=== PATIENT | male | born 1950 | race Caucasian/White ===

== ENCOUNTER 2022-08-08 20:08 | Emergency (ER) | payer MEDICARE ==
[~2022-08-08] VITALS: Ht 185.4 cm; Wt 103.5 kg
[2022-08-08] MEDS ORDERED: ZOSYN 3.375GM +NS 50ML IV SCH (21:00)
[2022-08-08 21:07] LABS: BASOPHILS % (AUTO) 0.5 % (0.0-5.0); EOSINOPHILS % (AUTO) 3.1 % (0.0-8.0); HEMATOCRIT 41.1 % (42-54); LYMPHOCYTES % (AUTO) 29.8 % (21.0-51.0); MEAN CORPUSCULAR HEMOGLOBIN 31.3 pg (27.0-33.0); MEAN CORPUSCULAR VOLUME 89.3 fL (79-99); MONOCYTES % (AUTO) 10.5 % (3.0-13.0); NEUTROPHILS % (AUTO) 55.7 % (40.0-77.0); PLATELET COUNT (AUTO) 188 K/uL (130-400); RED CELL DISTRIBUTION WIDTH 12.6 % (11.0-15.5); WHITE BLOOD COUNT (AUTO) 8.5 K/uL (4.8-10.8)
[2022-08-08] MEDS ORDERED: SULF1TAB42 PO (21:09)
[2022-08-08 21:23] LABS: CREATININE 0.9 mg/dL (0.5-1.5); POTASSIUM 3.3 mmol/L (3.5-5.1)
[2022-08-08 21:28] LABS: ALBUMIN 3.8 g/dL (3.5-5.0); TOTAL PROTEIN, SERUM 7.3 g/dL (6.0-8.3)
[2022-08-08 21:37] VITALS: BP 134/90
[2022-08-08] MEDS ORDERED: POTASSIUM CHLORIDE 10% ELIXIR 20 MEQ/15 ML UDCUP PO ONE (22:00)
== END 2022-08-08 22:03 | disposition home or self-care (01) ==
LOC: EDH 20:08
DX: L03.032 Cellulitis of left toe (principal); L84 Corns and callosities; E87.6 Hypokalemia; E11.621 Type 2 diabetes mellitus with foot ulcer; L97.529 Non-pressure chronic ulcer of other part of left foot with unspecified severity; M10.9 Gout, unspecified; I10 Essential (primary) hypertension; E78.00 Pure hypercholesterolemia, unspecified; Z95.1 Presence of aortocoronary bypass graft; Z98.890 Other specified postprocedural states
CPT/HCPCS: 11055; 99284; 80053; 85025; 36415; 96365; J2543

== ENCOUNTER 2023-04-08 06:13 | Day surgery (SDC) | payer MEDICARE ==
[2023-04-03 15:54] LABS: INR 0.93 (0.85-1.15); PROTHROMBIN TIME 10.5 SEC (9.6-11.6)
[2023-04-03 15:56] LABS: PARTIAL THROMBOPLASTIN TIME 26.1 SEC (26.3-35.5)
[2023-04-03 15:57] LABS: ALBUMIN 3.9 g/dL (3.5-5.0); BILIRUBIN,TOTAL 2.2 mg/dL (0.2-1.0); POTASSIUM 4.4 mmol/L (3.5-5.1); TOTAL PROTEIN, SERUM 7.6 g/dL (6.0-8.3)
[2023-04-03 16:07] VITALS: BP 157/77; PULSE 71; RESP 16
[2023-04-03 16:12] LABS: BASOPHILS # (AUTO) 0.06 K/uL (0.00-0.20); BASOPHILS % (AUTO) 0.6 % (0.0-5.0); EOSINOPHILS # (AUTO) 0.27 K/uL (0.00-0.70); EOSINOPHILS % (AUTO) 2.6 % (0.0-8.0); IMMATURE GRANULOCYTE ABSOLUTE 0.02 K/uL (0-1); LYMPHOCYTES # (AUTO) 2.9 K/uL (1.0-4.8); LYMPHOCYTES % (AUTO) 28.1 % (21.0-51.0); MEAN CORPUSCULAR HEMOGLOBIN 31.7 pg (27.0-33.0); MEAN CORPUSCULAR HGB CONC 33.7 g/dL (32.0-36.0); MEAN CORPUSCULAR VOLUME 94.1 fL (79-99); MONOCYTES # (AUTO) 0.8 K/uL (0.1-1.0); MONOCYTES % (AUTO) 7.8 % (3.0-13.0); NEUTROPHILS # (AUTO) 6.3 K/uL (1.8-7.7); NEUTROPHILS % (AUTO) 60.7 % (40.0-77.0); PLATELET COUNT (AUTO) 220 K/uL (130-400); RED BLOOD CELL COUNT(AUTO) 4.57 MIL/uL (4.50-6.20); WHITE BLOOD COUNT (AUTO) 10.5 K/uL (4.8-10.8)
[~2023-04-08] VITALS: Ht 185.4 cm; Wt 1014.2 kg
[2023-04-08] VITALS (20 sets, daily range): BP systolic 143–218; BP diastolic 64–96; PULSE 63–83; RESP 16–22
[~2023-04-08 06:13] MED LIST: AEC81 PO; ALLO300T2 PO; ATOR40TA71 PO; INSU100V37 SQ; LISI1TAB51 PO; METF-446 PO; METO50TA18 PO; NOVOLOG SQ; OMEG-148 PO
[2023-04-08] MEDS ORDERED: MEROPENEM 1 GM VIAL ONE (06:51)
[2023-04-08] MEDS ORDERED: 0.9%NACL 1000ML 1,000 ML IV ONE (06:52)
[2023-04-08] MEDS ORDERED: BUPIVACAINE/PF 0.5% 30ML VIAL ONE (07:18)
[2023-04-08] MEDS ORDERED: FAMOTIDINE 20MG VIAL IV ONE (07:22)
[2023-04-08] MEDS ORDERED: LIDOCAINE PF 100MG/5ML (2%) SYRINGE 5ML ONE (07:27)
[2023-04-08] MEDS ORDERED: ROCURONIUM 10MG/1ML SYR 10 MG/ML ML ONE (07:28)
[2023-04-08] MEDS ORDERED: FENTANYL CITRATE PF 50 MCG/1 ML 2ML VIAL ONE ×3 (07:28→10:21)
[2023-04-08] MEDS ORDERED: GLYCOPYRROLATE 1 MG/5 ML SYRINGE ONE (07:28)
[2023-04-08] MEDS ORDERED: PROPOFOL 10 MG/ML 20ML VIAL IV ONE (07:28)
[2023-04-08] MEDS ORDERED: LIDOCAINE HCL 1% 20 ML VIAL MISC ONE (08:01)
[2023-04-08] MEDS ORDERED: BUPIVACAINE/PF 0.5% 30ML VIAL INJ ONE (08:02)
[2023-04-08] MEDS ORDERED: CEFAZOLIN SODIUM 2 GM VIAL IVPB ONE (08:08)
[2023-04-08] MEDS ORDERED: ONDANSETRON 4MG INJ ONE ×2 (08:08→10:56)
[2023-04-08] MEDS ORDERED: NEOSTIGMINE 5MG/5ML SYR IV ONE (10:20)
[2023-04-08] MEDS ORDERED: MEPERIDINE-PF 25 MG/ML SYG ONE ×2 (10:57→11:02)
[2023-04-08] MEDS ORDERED: HYDRALAZINE 20MG/ML VIAL ONE (11:02)
[2023-04-08] MEDS ORDERED: ACETAMINOPHEN WITH CODEINE 1 TAB TAB ONE (12:42)
== END 2023-04-08 13:40 | disposition home or self-care (01) ==
LOC: DAH 06:13
PROVIDERS: ATTEND Surgery
DX: D12.1 Benign neoplasm of appendix (principal); Z20.822 Contact with and (suspected) exposure to COVID-19; R19.4 Change in bowel habit; R19.5 Other fecal abnormalities; I10 Essential (primary) hypertension; E11.9 Type 2 diabetes mellitus without complications; I25.10 Atherosclerotic heart disease of native coronary artery without angina pectoris; K21.9 Gastro-esophageal reflux disease without esophagitis; Z79.899 Other long term (current) drug therapy; Z79.01 Long term (current) use of anticoagulants; Z79.82 Long term (current) use of aspirin; Z87.891 Personal history of nicotine dependence; Z98.890 Other specified postprocedural states
CPT/HCPCS: 80053; 85025; 85610; 85730; 86850 ×2; 86900 ×2; 86901 ×2; 87426; 36415 ×2; 44970; 82948 ×2; A6260; A4663; J7030 ×2; J7120; A4344; A4215 ×2; J3490 ×4; J3010 ×3; J2710; J2001; J0360; J2704; J2405 ×2; J2175 ×2; J2185; J0690; C1769; A4223; A4222; A4221; A4600; G0168

== ENCOUNTER 2023-11-04 06:19 | Day surgery (SDC) | payer MEDICARE ==
[2023-10-30 15:50] VITALS: BP 155/77; PULSE 68; RESP 15
[2023-10-30 15:50] LABS: BASOPHILS # (AUTO) 0.06 K/uL (0.00-0.20); BASOPHILS % (AUTO) 0.5 % (0.0-5.0); EOSINOPHILS # (AUTO) 0.42 K/uL (0.00-0.70); EOSINOPHILS % (AUTO) 3.8 % (0.0-8.0); HEMATOCRIT 43.2 % (42-54); IMMATURE GRANULOCYTE ABSOLUTE 0.04 K/uL (0-1); LYMPHOCYTES # (AUTO) 3.4 K/uL (1.0-4.8); LYMPHOCYTES % (AUTO) 30.7 % (21.0-51.0); MEAN CORPUSCULAR HEMOGLOBIN 31.8 pg (27.0-33.0); MEAN CORPUSCULAR HGB CONC 33.3 g/dL (32.0-36.0); MEAN CORPUSCULAR VOLUME 95.4 fL (79-99); MONOCYTES # (AUTO) 0.9 K/uL (0.1-1.0); MONOCYTES % (AUTO) 7.6 % (3.0-13.0); NEUTROPHILS # (AUTO) 6.4 K/uL (1.8-7.7); PLATELET COUNT (AUTO) 246 K/uL (130-400); RED BLOOD CELL COUNT(AUTO) 4.53 MIL/uL (4.50-6.20); RED CELL DISTRIBUTION WIDTH 13.7 % (11.0-15.5); WHITE BLOOD COUNT (AUTO) 11.2 K/uL (4.8-10.8)
[2023-10-30 16:15] LABS: POTASSIUM 4.4 mmol/L (3.5-5.1)
[~2023-11-04] VITALS: Ht 185.4 cm; Wt 99.6 kg
[2023-11-04] VITALS (17 sets, daily range): BP systolic 131–198; BP diastolic 49–87; PULSE 54–72; RESP 12–19
[~2023-11-04 06:19] MED LIST changes: -AEC81 PO; +CEFAZOLIN SODIUM 1 GM VIAL IVPB PRN; +mvi PO
[2023-11-04] MEDS: 0.9%NACL 1000ML 1,000 ML IV ONE (07:11)
[2023-11-04] MEDS: CEFAZOLIN SODIUM 2 GM VIAL ONE (07:12)
[2023-11-04] MEDS ORDERED: BUPIVACAINE/PF 0.25% 30ML VIAL IJ ONE (07:29)
[2023-11-04] MEDS ORDERED: IOHEXOL-350 50ML VIAL IV ONE (07:48)
[2023-11-04] MEDS ORDERED: LIDOCAINE PF 100MG/5ML (2%) SYRINGE 5ML ONE (10:06)
[2023-11-04] MEDS ORDERED: PROPOFOL 10 MG/ML 20ML VIAL IV ONE (10:06)
[2023-11-04] MEDS ORDERED: GLYCOPYRROLATE 0.2 MG/ML 5 ML VIAL ONE (10:06)
[2023-11-04] MEDS ORDERED: ROCURONIUM BROMIDE 10MG/1ML 5ML VL ONE (10:07)
[2023-11-04] MEDS ORDERED: FENTANYL CITRATE PF 50 MCG/1 ML 2ML VIAL ONE ×2 (10:07→10:46)
[2023-11-04] MEDS: CEFAZOLIN SODIUM 2 GM VIAL IVPB ONE ×2 (10:20)
[2023-11-04] MEDS: BUPIVACAINE/PF 0.25% 30ML VIAL IJ ONE ×2 (10:40)
[2023-11-04] MEDS ORDERED: ONDANSETRON 4MG INJ ONE (10:41)
[2023-11-04] MEDS ORDERED: NEOSTIGMINE METHYLSULFATE 1MG/ML IV ONE (11:30)
[2023-11-04] MEDS: MEPERIDINE-PF 25 MG/ML SYG ONE (12:06)
[2023-11-04] MEDS: HYDRALAZINE 20MG/ML VIAL ONE (12:21)
== END 2023-11-04 13:40 | disposition home or self-care (01) ==
LOC: DAH 06:19
PROVIDERS: ATTEND Surgery
DX: K80.10 Calculus of gallbladder with chronic cholecystitis without obstruction (principal); I10 Essential (primary) hypertension; E11.9 Type 2 diabetes mellitus without complications; I25.10 Atherosclerotic heart disease of native coronary artery without angina pectoris; R17 Unspecified jaundice; Z79.899 Other long term (current) drug therapy; Z98.890 Other specified postprocedural states; Z90.49 Acquired absence of other specified parts of digestive tract; Z95.1 Presence of aortocoronary bypass graft; Z79.84 Long term (current) use of oral hypoglycemic drugs; Z87.891 Personal history of nicotine dependence
CPT/HCPCS: 80048; 85025; 86850 ×2; 86900 ×2; 86901 ×2; 36415 ×2; 47563; 82948 ×2; 88304; 74300; A6260; A4663; J7030 ×2; A4215 ×2; C1758; J3010 ×2; J0665 ×2; J3490 ×2; J2001; J0360; J2704; J2405; J2710; J2175; Q9967; J0690 ×2; C1769 ×3; A4649 ×2; A4930; A4223; A4222; A4221; A4600; G0168

== ENCOUNTER → 2024-03-18 | Outpatient (CLI) | payer MEDICARE ==
[~2024-03-18] MED LIST changes: -CEFAZOLIN SODIUM 1 GM VIAL IVPB PRN
== END | disposition home or self-care (01) ==
LOC: RAH 09:32
PROVIDERS: ATTEND Internal Medicine Gastroenterology
DX: R93.3 Abnormal findings on diagnostic imaging of other parts of digestive tract (principal); R10.11 Right upper quadrant pain; R93.5 Abnormal findings on diagnostic imaging of other abdominal regions, including retroperitoneum; R17 Unspecified jaundice; M47.815 Spondylosis without myelopathy or radiculopathy, thoracolumbar region; I70.90 Unspecified atherosclerosis; Z90.49 Acquired absence of other specified parts of digestive tract
CPT/HCPCS: 74176

== ENCOUNTER → 2024-05-04 | Outpatient (CLI) | payer MEDICARE | END | disposition home or self-care (01) | LOC: RAH 14:22 | PROVIDERS: ATTEND Internal Medicine Interventional Cardiology | DX: J84.9 Interstitial pulmonary disease, unspecified (principal); R07.82 Intercostal pain; R06.09 Other forms of dyspnea; I70.0 Atherosclerosis of aorta; M47.815 Spondylosis without myelopathy or radiculopathy, thoracolumbar region | CPT/HCPCS: 71046; 71110 ==

== ENCOUNTER → 2024-06-04 | Outpatient (CLI) | payer MEDICARE | END | disposition home or self-care (01) | LOC: LAB 13:17 | PROVIDERS: ATTEND Surgery | DX: R10.11 Right upper quadrant pain (principal) | CPT/HCPCS: 36415; 82565; 84520 ==

== ENCOUNTER → 2024-06-11 | Outpatient (CLI) | payer MEDICARE ==
[~2024-06-11] MED LIST changes: +IOHEXOL-350 75 ML VIAL IV ONE
== END | disposition home or self-care (01) ==
LOC: RAH 09:18
PROVIDERS: ATTEND Surgery
DX: R10.11 Right upper quadrant pain (principal); Z90.49 Acquired absence of other specified parts of digestive tract
CPT/HCPCS: 74177; Q9967